=== PATIENT | male | born 1995 | race Caucasian/White ===

== ENCOUNTER 2023-02-18 10:05 | Outpatient (CLI) | payer MEDICAID, SELFPAY | END 2023-02-18 10:06 | disposition home or self-care (01) | PROVIDERS: PCP Emergency Medicine; Referring Provider Emergency Medicine; Visit Provider Emergency Medicine | DX: Z13.220 Encounter for screening for lipoid disorders (principal); I10 Essential (primary) hypertension | CPT/HCPCS: 80048; 80061 ==

== ENCOUNTER 2025-01-05 09:37 | Outpatient (CLI) | payer OTHER, SELFPAY | END 2025-01-05 09:38 | disposition home or self-care (01) | PROVIDERS: PCP Internal Medicine; Visit Provider Internal Medicine | DX: I10 Essential (primary) hypertension (principal) | CPT/HCPCS: 80053; 80061 ==